=== PATIENT | female | born 1980 | race Caucasian/White ===

== ENCOUNTER 2017-01-22 14:25 | Emergency (ER) | payer MEDICARE ==
[~2017-01-22] VITALS: Ht 167.6 cm; Wt 90.0 kg
[2017-01-22 14:35] VITALS: BP 134/88; PULSE 70; RESP 15; TEMP 99; O2SAT 96
[2017-01-22] MEDS ORDERED: CYMB60CA PO (14:45)
[2017-01-22] MEDS ORDERED: BUTA1CAP PO ×2 (14:45→15:21)
[2017-01-22] MEDS ORDERED: NEUR400C PO (14:45)
[2017-01-22] MEDS ORDERED: NEUR800T PO (14:45)
[2017-01-22] MEDS ORDERED: ACETAMIN 325 MG/BUTALBITAL 50 MG/CAFFEINE 40 MG TAB PO ONE (15:15)
[2017-01-22] MEDS ORDERED: ONDANSETRON ODT 4 MG TAB PO ONE (15:15)
[2017-01-22] MEDS ORDERED: ZOFR4TAB3 SL (15:22)
--- NOTE | 2017-01-22 15:22 | PD ---
HPI Chief Complaint: Cold / Flu Symptoms Time Seen by Provider: 15:15 Travel History International Travel<30 days: No Contact w/Intl Traveler<30days: No Traveled to known affect area: No History of Present Illness HPI 36-year-old female with history of migraine headaches, presents to the ER today for several days history of headaches which she states is a 5 out of 10 and feels like her migraines, worse with loud noises and flickering lights, nausea, vomiting, and she also states she has had a few days of cough and sinus pressure. She states that she had tried to take ibuprofen tppk-pyw-pebhlsz and BC powder without significant relief. She states she had taken Sudafed which helped with the nasal symptoms but did not relieve her headaches. She believes that this is her migraine headache. However, she ran out of her usual Fioricet. She states that she gets migraines intermittently every few months. Modifying Factors: None Associated Signs & Symptoms: Headache, nausea, vomiting, sinus pressure, cough Risk Factors: Migraine headaches PFSH Past Medical History Depression: Yes Headaches: Yes Migraines: Yes Influenza Vaccination: No ?: Not LMP: 2 WEEKS Social History Alcohol Use: Yes (rarely) Tobacco Use: Yes (1/2 ppd) Substance Use: No Allergies-Medications (Allergen,Severity, Reaction): Coded Allergies: Tramadol (Verified Allergy, Intermediate, Tachycardia, 01/22/17) Reported Meds & Prescriptions Reported Meds & Active Scripts Active Reported Neurontin (Gabapentin) 800 Mg Tab 800 Mg PO HS Neurontin (Gabapentin) 400 Mg Cap 400 Mg PO DAILY Cymbalta DR (Duloxetine HCl) 60 Mg Capdr 60 Mg PO DAILY Fioricet (Njempgtjcv-Dcgmptkuegthf-Paufvdyx) 50-300-40 Mg Cap 1-2 Cap PO Q6H PRN Review of Systems Except as stated in HPI: all other systems reviewed are Neg Physical Exam Narrative GENERAL: Young white female patient who is well-developed, awake, alert, oriented 3. Not in acute distress. SKIN: Warm and dry. HEAD: Atraumatic. Normocephalic. EYES: Pupils equal and round. No scleral icterus. No injection or drainage. No photophobia. ENT: No nasal bleeding or discharge. Mucous membranes pink and moist. NECK: Trachea midline. No JVD. CARDIOVASCULAR: Regular rate and rhythm. No murmur appreciated. RESPIRATORY: No accessory muscle use. Clear to auscultation. Breath sounds equal bilaterally. GASTROINTESTINAL: Abdomen soft, non-tender, nondistended. Hepatic and splenic margins not palpable. MUSCULOSKELETAL: No obvious deformities. No clubbing. No cyanosis. No edema. NEUROLOGICAL: Awake and alert. No obvious cranial nerve deficits. Motor grossly within normal limits. Normal speech. PSYCHIATRIC: Appropriate mood and affect; insight and judgment normal. Data Data Last Documented VS Vital Signs Date Time Temp Pulse Resp B/P Pulse Ox O2 Delivery O2 Flow Rate FiO2 01/22/17 14:35 99.0 70 15 134/88 96 MDM Medical Decision Making Medical Screen Exam Complete: Yes Emergency Medical Condition: Yes Medical Record Reviewed: Yes Differential Diagnosis Migraine headache versus viral syndrome versus meningitis Narrative Course Patient has no meningeal signs and I am not suspecting a meningitis in this case. She has history of migraine headaches and states that headaches are feeling similar to her migraines. At this point, my plan would be to give her symptomatic treatment and refill her Fioricet. Follow-up with primary care physician. Return for any worsening in symptoms as necessary. The plan has been discussed with her and she states understanding. Diagnosis Primary Impression: Migraine headache Med/Other Pt SpecificInfo: Prescription(s) given Scripts Ondansetron Odt (Zofran Odt)4 Mg Tab4 Mg SL Q6HR PRN (Nausea/Vomiting) #5 TAB Ref 0 Prov:Lisa Harding MD 01/22/17 Mqmkujhnaf-Qjmuzyyrtodwu-Afgunfbl (Fioricet)50-300-40 Mg Cap1 Cap PO Q4H PRN ( HEADACHE) #12 CAP Ref 0 Prov:Lisa Harding MD 01/22/17 Disposition: 01 DISCHARGE HOME Condition: Stable Lisa Harding MD Jan 22, 2017 15:22
== END 2017-01-22 15:54 | disposition home or self-care (01) ==
LOC: PHEFT 14:25
DX: G43.909 Migraine, unspecified, not intractable, without status migrainosus (principal); F17.210 Nicotine dependence, cigarettes, uncomplicated
CPT/HCPCS: 99283

== ENCOUNTER 2017-07-31 10:34 | Emergency (ER) | payer MEDICARE, OTHER ==
[~2017-07-31] VITALS: Ht 170.2 cm; Wt 87.0 kg
[~2017-07-31 10:34] MED LIST: BUTA1CAP PO; CYMB60CA PO; NEUR400C PO; NEUR800T PO; ZOFR4TAB3 SL
[2017-07-31 10:40] VITALS: BP 140/80; PULSE 61; RESP 15; TEMP 98.7; O2SAT 100
[2017-07-31] MEDS ORDERED: METO50TA PO (10:53)
--- NOTE | 2017-07-31 11:08 | PD ---
HPI Chief Complaint: Fever Time Seen by Provider: 10:59 Travel History International Travel<30 days: No Contact w/Intl Traveler<30days: No Traveled to known affect area: No History of Present Illness HPI This 37-year-old female says she hasn't felt well for several days. She says she's been feeling weak and feels like he has to sleep a lot. She's been having intermittent fever. She does have toothache and has very bad teeth that she's been told to be extracted. She's been taking Motrin 800 mg every 6 hours. She has not had any dysuria. She has a history of lupus for 10 years. She is on no medications. Lupus is primarily affected her with joint pain area. There is been no sore throat or cough. PFSH Past Medical History Anxiety: Yes Depression: Yes Fibromyalgia: Yes Headaches: Yes Medical other: Yes (LUPUS) Migraines: Yes ?: Not Past Surgical History Appendectomy: Yes Section: Yes Cholecystectomy: Yes Tonsillectomy: Yes Other Surgery: Yes (BREAST AUGMENTATION) Social History Alcohol Use: Yes (rarely) Tobacco Use: Yes (1/2 ppd) Substance Use: No Allergies-Medications (Allergen,Severity, Reaction): Coded Allergies: tramadol (Unverified Allergy, Intermediate, Tachycardia, 07/31/17) Reported Meds & Prescriptions Reported Meds & Active Scripts Active Reported Metoprolol Tartrate 50 Mg Tab 50 Mg PO DAILY Neurontin (Gabapentin) 800 Mg Tab 800 Mg PO HS Cymbalta DR (Duloxetine HCl) 60 Mg Capdr 60 Mg PO DAILY Review of Systems General / Constitutional: Positive: Fever Eyes: No: Diploplia, Blurred Vision HENT: Positive: Dental Difficulties, No: Headaches Cardiovascular: No: Chest Pain or Discomfort, Palpitations Respiratory: No: Cough, Shortness of Breath Gastrointestinal: No: Nausea, Vomiting Genitourinary: No: Urgency, Frequency Skin: No Rash Neurologic: Positive: Weakness, Dizziness Hematologic/Lymphatic: Positive: Easy Bruising Physical Exam Narrative GENERAL: Well-developed female SKIN: Focused skin assessment warm/dry. HEAD: Atraumatic. Normocephalic. EYES: Pupils equal and round. No scleral icterus. No injection or drainage. ENT: No nasal bleeding or discharge. Mucous membranes pink and moist. There are multiple severely eroded teeth with underlying gum tenderness NECK: Trachea midline. No JVD. CARDIOVASCULAR: Regular rate and rhythm. No murmur appreciated. RESPIRATORY: No accessory muscle use. Clear to auscultation. Breath sounds equal bilaterally. GASTROINTESTINAL: Abdomen soft, non-tender, nondistended. Hepatic and splenic margins not palpable. MUSCULOSKELETAL: No obvious deformities. No clubbing. No cyanosis. No edema. There is a bruise on the inside of the left thigh. No other bruising is noted NEUROLOGICAL: Awake and alert. No obvious cranial nerve deficits. Motor grossly within normal limits. Normal speech. PSYCHIATRIC: Appropriate mood and affect; insight and judgment normal. Data Data Last Documented VS Vital Signs Date Time Temp Pulse Resp B/P (MAP) Pulse Ox O2 Delivery O2 Flow Rate FiO2 07/31/17 10:40 98.7 61 15 140/80 (100) 100 Orders Orders Complete Blood Count With Diff (07/31/17 11:05) Comprehensive Metabolic Panel (07/31/17 11:05) Prothrombin Time / Inr (Pt) (07/31/17 11:05) Act Partial Throm Time (Ptt) (07/31/17 11:05) Urinalysis - C+S If Indicated (07/31/17 11:05) Influenzae A/B Antigen (07/31/17 11:08) Ed Urine Pregnancytest Poc (07/31/17 11:24) Labs Laboratory Tests Test 07/31/17 11:15 07/31/17 11:25 White Blood Count 8.5 TH/MM3 Red Blood Count 3.93 MIL/MM3 Hemoglobin 13.2 GM/DL Hematocrit 38.1 % Mean Corpuscular Volume 97.0 FL Mean Corpuscular Hemoglobin 33.7 PG Mean Corpuscular Hemoglobin Concent 34.8 % Red Cell Distribution Width 13.6 % Platelet Count 413 TH/MM3 Mean Platelet Volume 7.5 FL Neutrophils (%) (Auto) 73.4 % Lymphocytes (%) (Auto) 20.3 % Monocytes (%) (Auto) 3.9 % Eosinophils (%) (Auto) 1.9 % Basophils (%) (Auto) 0.5 % Neutrophils # (Auto) 6.3 TH/MM3 Lymphocytes # (Auto) 1.7 TH/MM3 Monocytes # (Auto) 0.3 TH/MM3 Eosinophils # (Auto) 0.2 TH/MM3 Basophils # (Auto) 0.0 TH/MM3 CBC Comment DIFF FINAL Differential Comment Prothrombin Time 10.3 SEC Prothromb Time International Ratio 0.9 RATIO Activated Partial Thromboplast Time 26.1 SEC Blood Urea Nitrogen 9 MG/DL Creatinine 0.95 MG/DL Random Glucose 98 MG/DL Total Protein 7.2 GM/DL Albumin 3.8 GM/DL Calcium Level 9.4 MG/DL Alkaline Phosphatase 56 U/L Aspartate Amino Transf (AST/SGOT) 13 U/L Alanine Aminotransferase (ALT/SGPT) 16 U/L Total Bilirubin 0.3 MG/DL Sodium Level 139 MEQ/L Potassium Level 4.0 MEQ/L Chloride Level 106 MEQ/L Carbon Dioxide Level 25.5 MEQ/L Anion Gap 8 MEQ/L Estimat Glomerular Filtration Rate 67 ML/MIN Urine Color YELLOW Urine Turbidity CLEAR Urine pH 6.0 Urine Specific [place] 1.021 Urine Protein NEG mg/dL Urine Glucose (UA) NEG mg/dL Urine Ketones NEG mg/dL Urine Occult Blood NEG Urine Nitrite NEG Urine Bilirubin NEG Urine Leukocyte Esterase NEG Urine WBC 0-2 /hpf Urine Squamous Epithelial Cells 0-5 /hpf Microscopic Urinalysis Comment CULT NOT INDICATED MDM Medical Decision Making Medical Screen Exam Complete: Yes Emergency Medical Condition: Yes Medical Record Reviewed: Yes Differential Diagnosis Patient is having generalized weakness and fever. Differential includes lupus flare, UTI, influenza Narrative Course Test for influenza is negative. Urine is negative. Blood work unremarkable. She'll be treated for dental infection Diagnosis Primary Impression: Dental infection Scripts Penicillin V Potassium (Penicillin V Potassium) 500 Mg Tab 500 MG PO Q6H for Infection for 10 Days, #40 TAB 0 Refills Prov: Arnulfo Valencia MD 07/31/17 Disposition: 01 DISCHARGE HOME Condition: Stable Arnulfo Valencia MD Jul 31, 2017 11:07
[2017-07-31 11:22] LABS: AUTOMATED NEUTROPHIL # 6.3 TH/MM3 (1.8-7.7); BASOPHIL % 0.5 % (0.0-2.0); EOSINOPHIL # 0.2 TH/MM3 (0-0.4); EOSINOPHIL % 1.9 % (0.0-4.0); HEMATOCRIT 38.1 % (35.0-46.0); HEMO FLAGS DIFF FINAL; LYMPH % 20.3 % (9.0-44.0); LYMPHOCYTE # 1.7 TH/MM3 (1.0-4.8); MEAN CORPUSCULAR HEMOGLOBIN 33.7 PG (27.0-34.0); MEAN CORPUSCULAR HGB CONC 34.8 % (32.0-36.0); MONO % 3.9 % (0.0-8.0); NEUT % 73.4 % (16.0-70.0); PLATELET COUNT 413 TH/MM3 (150-450); RED BLOOD COUNT 3.93 MIL/MM3 (4.00-5.30); RED CELL DISTRIBUTION WIDTH 13.6 % (11.6-17.2); WHITE BLOOD COUNT 8.5 TH/MM3 (4.0-11.0)
[2017-07-31 11:28] LABS: BLOOD, URINE NEG (NEG); GLUCOSE,URINE NEG (NEG); KETONE, URINE NEG (NEG); NITRITE,URINE NEG (NEG)
[2017-07-31 11:31] LABS: CHLORIDE 106 MEQ/L (98-107); SODIUM (NA) 139 MEQ/L (136-145)
[2017-07-31 11:34] LABS: ANION GAP 8 MEQ/L (5-15); BICARBONATE 25.5 MEQ/L (21.0-32.0)
[2017-07-31 11:35] LABS: APTT (PATIENT) 26.1 SEC (24.3-30.1); BLOOD UREA NITROGEN 9 MG/DL (7-18); INTERNATIONAL NORMALIZED RATIO 0.9 RATIO; PROTHROMBIN TIME - PATIENT 10.3 SEC (9.8-11.6)
[2017-07-31 11:36] LABS: COMMENT (UR) CULT NOT INDICATED; CULTURE IF INDICATED CULT NOT INDICATED; SQUAMOUS EPITHELIAL CELL URINE 0-5 /hpf (0-5); URINE COLOR YELLOW (YELLW/STRAW); WBC, URINE 0-2 /hpf (0-5)
[2017-07-31 11:37] LABS: ALT (GPT) 16 U/L (10-53)
[2017-07-31 11:38] LABS: AST (GOT) 13 U/L (15-37); GLOMERULAR FILTRATION RATE 67 ML/MIN (>89)
[2017-07-31 11:39] LABS: TOTAL BILIRUBIN ADULT 0.3 MG/DL (0.2-1.0)
[2017-07-31 11:40] LABS: ALKALINE PHOSPHATASE 56 U/L (45-117)
[2017-07-31 12:15] VITALS: BP 137/83; PULSE 90; RESP 20; O2SAT 100
[2017-07-31] MEDS ORDERED: PENI500T PO (12:15)
[2017-08-17] MEDS ORDERED: METO25TA3 PO (11:58)
[2017-08-24] MEDS ORDERED: PRED5PAK2 PO (08:46)
== END 2017-07-31 12:27 | disposition home or self-care (01) ==
LOC: PHED 10:34
DX: K04.7 Periapical abscess without sinus (principal); M32.9 Systemic lupus erythematosus, unspecified; M79.7 Fibromyalgia; F17.210 Nicotine dependence, cigarettes, uncomplicated; R53.1 Weakness; Z79.899 Other long term (current) drug therapy; R23.3 Spontaneous ecchymoses
CPT/HCPCS: 80053; 81001; 84703; 85025; 85610; 85730; 87804; 99283

== ENCOUNTER 2017-08-17 11:42 | Emergency (ER) | payer MEDICARE, OTHER ==
[~2017-08-17] VITALS: Ht 167.6 cm; Wt 80.0 kg
[~2017-08-17 11:42] MED LIST changes: -BUTA1CAP PO; +METO50TA PO; -NEUR400C PO; +PENI500T PO; -ZOFR4TAB3 SL
[2017-08-17 11:44] VITALS: BP 122/66; PULSE 70; RESP 15; TEMP 98.4; O2SAT 98
[2017-08-17] MEDS ORDERED: METO25TA3 PO ×2 (11:58)
[2017-08-17] MEDS ORDERED: ACETAMINOPHEN/HYDROcodone 325 MG/5 MG TAB PO ONE (12:15)
--- NOTE | 2017-08-17 13:16 | RADRPT ---
EXAM DATE/TIME: 08/17/2017 12:36 [facility] COMPARISON: No previous studies available for comparison. INDICATIONS : Difficulty breathing, pain with deep breaths. Fell MEDICAL HISTORY : Hypertension. Fibromyalgia. SURGICAL HISTORY : Appendectomy. Cholecystectomy. section. ENCOUNTER: Initial ACUITY: 3 days PAIN SCORE: 0/10 LOCATION: Bilateral chest FINDINGS: A single view of the chest demonstrates the lungs to be symmetrically aerated without evidence of mas s, infiltrate or effusion. No evidence of pneumothorax. The cardiomediastinal contours are unremarka ble. Osseous structures are intact. CONCLUSION: The lungs are clear. Mio Rodriguez MD on August 17, 2017 at 13:14 Board Certified Radiologist. This report was verified electronically.
--- NOTE | 2017-08-17 13:17 | RADRPT ---
EXAM DATE/TIME: 08/17/2017 12:38 [facility] COMPARISON: No previous studies available for comparison. INDICATIONS : Upper back pain, fell MEDICAL HISTORY : Hypertension. Fibromyalgia. SURGICAL HISTORY : Appendectomy. Cholecystectomy. section. ENCOUNTER: Initial ACUITY: 3 days PAIN SCORE: 10/10 LOCATION: Thoracic spine. FINDINGS: There is normal alignment and preservation of height of the vertebral bodies of the thoracic spine. V lexis minimal curvature convex towards the left. Pedicles are seen at all levels. No destructive lesion s seen. Hemoclips in the right upper quadrant from presumed cholecystectomy. CONCLUSION: No evidence of compression deformity or spondylolisthesis. Mio Rodriguez MD on August 17, 2017 at 13:15 Board Certified Radiologist. This report was verified electronically.
[2017-08-17] MEDS ORDERED: HYDR-3533 PO (13:36)
--- NOTE | 2017-08-17 13:37 | PD ---
HPI Chief Complaint: Fall Time Seen by Provider: 12:03 Travel History International Travel<30 days: No Contact w/Intl Traveler<30days: No Traveled to known affect area: No History of Present Illness HPI This is a 37-year-old female who presents to the emergency department having had a fall yesterday where she she was trying to lift something off of a high shelf and she fell on her side landing on a water jug. She injured her left back and she has constant severe pain in the left back, worse with deep breaths making it difficult for her to take a deep breath. Pain is described as an aching pain. She did not hit her head and denies any other injuries. PFSH Past Medical History Anxiety: Yes Depression: Yes Fibromyalgia: Yes Headaches: Yes Hypertension: Yes Medical other: Yes (LUPUS) Migraines: Yes ?: Not LMP: NOW Past Surgical History Appendectomy: Yes Section: Yes Cholecystectomy: Yes Tonsillectomy: Yes Other Surgery: Yes (BREAST AUGMENTATION) Social History Alcohol Use: Yes (rarely) Tobacco Use: Yes (1/2 ppd) Substance Use: No Allergies-Medications (Allergen,Severity, Reaction): Coded Allergies: tramadol (Unverified Allergy, Intermediate, Tachycardia, 07/31/17) Reported Meds & Prescriptions Reported Meds & Active Scripts Active Reported Metoprolol Tartrate 25 Mg Tab 25 Mg PO DAILY Neurontin (Gabapentin) 800 Mg Tab 800 Mg PO HS Cymbalta DR (Duloxetine HCl) 60 Mg Capdr 60 Mg PO DAILY Review of Systems Except as stated in HPI: all other systems reviewed are Neg Physical Exam Narrative GENERAL:Well appearing, no acute distress SKIN: Ecchymoses to the left posterior rib cage, tender to palpation along the left posterior rib cage at the mid thoracic spine HEAD: Atraumatic. Normocephalic. EYES: Pupils equal and round. No injection or drainage. ENT: Moist mucous membranes NECK: Trachea midline. No cervical spine tenderness. CARDIOVASCULAR: Regular rate and rhythm. No murmur appreciated. RESPIRATORY: Clear to auscultation. Breath sounds equal bilaterally. GASTROINTESTINAL: Abdomen soft, non-tender, nondistended. MUSCULOSKELETAL: No obvious deformities. NEUROLOGICAL: Awake and alert. No obvious cranial nerve deficits. Moving all extremities. PSYCHIATRIC: Appropriate mood and affect; insight and judgment normal. Data Data Last Documented VS Vital Signs Date Time Temp Pulse Resp B/P (MAP) Pulse Ox O2 Delivery O2 Flow Rate FiO2 08/17/17 11:44 98.4 70 15 122/66 (84) 98 Orders Orders Chest, Single Ap (08/17/17 ) Spine, Thoracic-Ap/Lat/Sw(3vw) (08/17/17 ) Acetamin-Hydrocod 325-5 Mg ([place] 5-325 (08/17/17 12:15) MDM Medical Decision Making Medical Screen Exam Complete: Yes Emergency Medical Condition: Yes Interpretation(s) Last 24 hours Impressions Thoracic Spine X-Ray 08/17/17 0000 Signed Impressions: Service Date/Time: August 12:38 - CONCLUSION: No evidence of compression deformity or spondylolisthesis. Mio Rodriguez MD Chest X-Ray 08/17/17 0000 Signed Impressions: Service Date/Time: August 12:36 - CONCLUSION: The lungs are clear. Mio Rodriguez MD Differential Diagnosis Pneumothorax, rib fracture, rib contusion Narrative Course This is a 37-year-old female who presents to the emergency department with pain in her left rib cage following a fall. The pain is pleuritic and is consistent with a possible rib fracture. Chest x-rays reassuring and thoracic spine x- rays reassuring. Patient will be discharged with a short course of pain medication. Diagnosis Primary Impression: Rib contusion Qualified Codes: S20.212A - Contusion of left front wall of thorax, initial encounter Patient Instructions: General Instructions Additional Instructions: If you develop severe chest pain, shortness of breath, sweating, lightheadedness , dizziness or difficulty breathing return to the emergency department immediately. Followup with your primary care physician in 2-3 days if your symptoms are not resolved. Med/Other Pt SpecificInfo: Prescription(s) given Scripts Hydrocodone-Acetaminophen (Lortab) 5-325 Mg Tab 1-2 TAB PO Q6H Y for PAIN, #15 TAB 0 Refills Prov: Shahnaz Kumar MD 08/17/17 Disposition: 01 DISCHARGE HOME Condition: Stable Shahnaz Kumar MD Aug 17, 2017 13:36
[2017-08-24] MEDS ORDERED: PRED5PAK2 PO (08:46)
== END 2017-08-17 13:59 | disposition home or self-care (01) ==
LOC: NEPD 11:42
DX: S20.212A Contusion of left front wall of thorax, initial encounter (principal); W19.XXXA Unspecified fall, initial encounter; Y93.89 Activity, other specified
CPT/HCPCS: 71010; 72072; 94150; 99284

== ENCOUNTER 2017-08-19 14:39 | Inpatient (IN) | payer MEDICARE, OTHER ==
[~2017-08-19] VITALS: Ht 170.2 cm; Wt 89.0 kg
[2017-08-19] VITALS (10 sets, daily range): BP systolic 93–116; BP diastolic 34–65; PULSE 68–96; RESP 18–37; TEMP 99.2–99.9; O2SAT 78–99
[~2017-08-19 14:39] MED LIST changes: +HYDR-3533 PO; +METO25TA3 PO
[2017-08-19] MEDS ORDERED: MORPHINE SULFATE 4 MG/ML INJ IV PUSH ONE ×2 (15:15→16:45)
[2017-08-19] MEDS ORDERED: ONDANSETRON HCL 4 MG/2 ML VIAL IV PUSH ONE (15:15)
[2017-08-19 15:21] LABS: AUTOMATED NEUTROPHIL # 17.6 TH/MM3 (1.8-7.7); BASOPHIL # 0.1 TH/MM3 (0-0.2); BASOPHIL % 0.3 % (0.0-2.0); EOSINOPHIL # 0.2 TH/MM3 (0-0.4); EOSINOPHIL % 0.8 % (0.0-4.0); HEMATOCRIT 33.6 % (35.0-46.0); HEMO FLAGS DIFF FINAL; LYMPH % 5.5 % (9.0-44.0); LYMPHOCYTE # 1.1 TH/MM3 (1.0-4.8); MEAN CELL VOLUME 97.8 FL (80.0-100.0); MEAN CORPUSCULAR HEMOGLOBIN 31.9 PG (27.0-34.0); MEAN CORPUSCULAR HGB CONC 32.6 % (32.0-36.0); MONO % 1.3 % (0.0-8.0); NEUT % 92.1 % (16.0-70.0); PLATELET COUNT 350 TH/MM3 (150-450); RED BLOOD COUNT 3.43 MIL/MM3 (4.00-5.30); RED CELL DISTRIBUTION WIDTH 13.1 % (11.6-17.2); WHITE BLOOD COUNT 19.3 TH/MM3 (4.0-11.0)
[2017-08-19 15:30] LABS: CHLORIDE 109 MEQ/L (98-107); POTASSIUM 3.7 MEQ/L (3.5-5.1); SODIUM (NA) 140 MEQ/L (136-145)
--- NOTE | 2017-08-19 15:30 | RADRPT ---
EXAM DATE/TIME: 08/19/2017 15:17 [facility] COMPARISON: CHEST SINGLE AP, August 17, 2017, 12:36. INDICATIONS : Short of breath, chest pains MEDICAL HISTORY : Lupus. SURGICAL HISTORY : None. ENCOUNTER: Initial ACUITY: 4 - 6 days PAIN SCORE: 10/10 LOCATION: Right chest FINDINGS: Hazy bilateral primarily central alveolar opacities are present, potentially reflecting edema or deve loping diffuse infiltrate. No significant effusion. Cardiac contours are grossly satisfactory. CONCLUSION: Symmetric bilateral perihilar alveolar opacities Tremaine Ordonez MD on August 19, 2017 at 15:28 Board Certified Radiologist. This report was verified electronically.
[2017-08-19 15:33] LABS: ANION GAP 8 MEQ/L (5-15); BICARBONATE 22.7 MEQ/L (21.0-32.0); BLOOD UREA NITROGEN 10 MG/DL (7-18)
[2017-08-19 15:36] LABS: ALT (GPT) 41 U/L (10-53)
[2017-08-19 15:37] LABS: AST (GOT) 48 U/L (15-37); GLOMERULAR FILTRATION RATE 70 ML/MIN (>89)
[2017-08-19 15:38] LABS: TOTAL BILIRUBIN ADULT 0.7 MG/DL (0.2-1.0)
[2017-08-19 15:39] LABS: ALKALINE PHOSPHATASE 92 U/L (45-117)
[2017-08-19] MEDS ORDERED: AZITHROMYCIN INJ 500 MG in SODIUM CHLOR 0.9% 250 ML INJ 250 ML IV ONE (15:45)
[2017-08-19] MEDS ORDERED: cefTRIAXone INJ 1,000 MG in SODIUM CHLORIDE 0.9% INJ 100 ML IV ONE (15:45)
--- NOTE | 2017-08-19 16:21 | RADRPT ---
EXAM DATE/TIME: 08/19/2017 15:23 [facility] COMPARISON: CHEST SINGLE AP, August 19, 2017, 15:17. INDICATIONS : Fall, left rib pain. RADIATION DOSE: 10.90 CTDIvol (mGy) MEDICAL HISTORY : Hypertension. Fibromyalgia, anxiety. SURGICAL HISTORY : Appendectomy. Cholecystectomy. Breast augmentation ENCOUNTER: Initial ACUITY: 3 days PAIN SCALE: 10/10 LOCATION: Left chest TECHNIQUE: Volumetric scanning of the chest was performed. Using automated exposure control and adjustment of t he mA and/or kV according to patient size, radiation dose was kept as low as reasonably achievable to obtain optimal diagnostic quality images. DICOM format image data is available electronically for r eview and comparison. Follow-up recommendations for detected pulmonary nodules are based at a minimum on nodule size and pa tient risk factors according to Fleischner Society Guidelines. FINDINGS: There is diffuse groundglass and patchy consolidative airspace disease bilaterally with sparing of th e costophrenic angles. There are no effusions. A right paratracheal lymph node is present measuring 1 cm in short axis diameter. Subcentimeter prevascular nodes are identified and subcentimeter subcarin al lymph node. No pleural or pericardial effusions. Bilateral breast implants are noted. No obvious f ractures. CONCLUSION: 1. Bilateral groundglass infiltrates are noted. Infectious or inflammatory pneumonitis/hypersensitivi ty pneumonitis can have this appearance. Pato Hardy MD on August 19, 2017 at 16:17 Board Certified Radiologist. This report was verified electronically.
--- NOTE | 2017-08-19 16:43 | PD ---
HPI Chief Complaint: Respiratory Symptoms Time Seen by Provider: 14:54 Travel History International Travel<30 days: No Contact w/Intl Traveler<30days: No Traveled to known affect area: No History of Present Illness HPI Patient is a 37 year old female who comes in complaining of pain and SOB. She was here a few days ago after a fall and was diagnosed with a rib contusion. She was prescribed pain medicine, which she ran out of a few days ago. She says that for two days she has had a lot of pain in her rib and she is unable to take deep breaths. She denies any new injury. She denies fever or chills. PFSH Past Medical History Anxiety: Yes Depression: Yes Fibromyalgia: Yes Headaches: Yes Hypertension: Yes Migraines: Yes ?: Not Past Surgical History Appendectomy: Yes Section: Yes Cholecystectomy: Yes Tonsillectomy: Yes Other Surgery: Yes (BREAST AUGMENTATION) Social History Alcohol Use: Yes (rarely) Tobacco Use: Yes (1/2 ppd) Substance Use: No Allergies-Medications (Allergen,Severity, Reaction): Coded Allergies: tramadol (Unverified Allergy, Intermediate, Tachycardia, 08/19/17) Reported Meds & Prescriptions Reported Meds & Active Scripts Active Lortab (Hydrocodone-Acetaminophen) 5-325 Mg Tab 1-2 Tab PO Q6H PRN Reported Metoprolol Tartrate 25 Mg Tab 25 Mg PO DAILY Neurontin (Gabapentin) 800 Mg Tab 800 Mg PO HS Cymbalta DR (Duloxetine HCl) 60 Mg Capdr 60 Mg PO DAILY Review of Systems Except as stated in HPI: all other systems reviewed are Neg General / Constitutional: No: Fever, Chills HENT: No: Headaches, Lightheadedness Cardiovascular: Positive: Chest Pain or Discomfort Respiratory: Positive: Shortness of Breath Gastrointestinal: No: Nausea, Vomiting Musculoskeletal: Positive: Pain, No: Myalgias Skin: No Rash, No Change in Pigmentation Neurologic: No: Weakness, Dizziness Physical Exam Narrative GENERAL: Awake and alert, in moderate distress. SKIN: Focused skin assessment warm/dry. HEAD: Atraumatic. Normocephalic. EYES: Pupils equal and round. No scleral icterus. ENT: Mucous membranes pink and moist. NECK: Trachea midline. No JVD. CARDIOVASCULAR: Regular rate and rhythm. No murmur appreciated. RESPIRATORY: Tachypnea. Decreased breath sounds at the bases. Breath sounds equal bilaterally. GASTROINTESTINAL: Abdomen soft, non-tender, nondistended. MUSCULOSKELETAL: No obvious deformities. No clubbing. No cyanosis. No edema. NEUROLOGICAL: Awake and alert. No obvious cranial nerve deficits. Motor grossly within normal limits. Normal speech. PSYCHIATRIC: Appropriate mood and affect; insight and judgment normal. Data Data Last Documented VS Vital Signs Date Time Temp Pulse Resp B/P (MAP) Pulse Ox O2 Delivery O2 Flow Rate FiO2 08/19/17 16:05 87 20 112/57 (75) 98 Non-Rebreather 08/19/17 14:44 99.9 Orders Orders Iv Access Insert/Monitor (08/19/17 15:05) Complete Blood Count With Diff (08/19/17 15:05) Comprehensive Metabolic Panel (08/19/17 15:05) Ct Thorax/ Chest Wo Iv Contras (08/19/17 ) Chest, Single Ap (08/19/17 ) Morphine Inj (Morphine Inj) (08/19/17 15:15) Ondansetron Inj (Zofran Inj) (08/19/17 15:15) Ceftriaxone Inj (Rocephin Inj) (08/19/17 15:45) Azithromycin Inj (Zithromax Inj) (08/19/17 15:45) Morphine Inj (Morphine Inj) (08/19/17 16:45) Arterial Blood Gas (Abg) (08/19/17 ) Admit Order (Ed Use Only) (08/19/17 ) Labs Laboratory Tests Test 08/19/17 15:15 White Blood Count 19.3 TH/MM3 Red Blood Count 3.43 MIL/MM3 Hemoglobin 10.9 GM/DL Hematocrit 33.6 % Mean Corpuscular Volume 97.8 FL Mean Corpuscular Hemoglobin 31.9 PG Mean Corpuscular Hemoglobin Concent 32.6 % Red Cell Distribution Width 13.1 % Platelet Count 350 TH/MM3 Mean Platelet Volume 7.8 FL Neutrophils (%) (Auto) 92.1 % Lymphocytes (%) (Auto) 5.5 % Monocytes (%) (Auto) 1.3 % Eosinophils (%) (Auto) 0.8 % Basophils (%) (Auto) 0.3 % Neutrophils # (Auto) 17.6 TH/MM3 Lymphocytes # (Auto) 1.1 TH/MM3 Monocytes # (Auto) 0.3 TH/MM3 Eosinophils # (Auto) 0.2 TH/MM3 Basophils # (Auto) 0.1 TH/MM3 CBC Comment DIFF FINAL Differential Comment Blood Urea Nitrogen 10 MG/DL Creatinine 0.91 MG/DL Random Glucose 121 MG/DL Total Protein 6.5 GM/DL Albumin 2.9 GM/DL Calcium Level 8.7 MG/DL Alkaline Phosphatase 92 U/L Aspartate Amino Transf (AST/SGOT) 48 U/L Alanine Aminotransferase (ALT/SGPT) 41 U/L Total Bilirubin 0.7 MG/DL Sodium Level 140 MEQ/L Potassium Level 3.7 MEQ/L Chloride Level 109 MEQ/L Carbon Dioxide Level 22.7 MEQ/L Anion Gap 8 MEQ/L Estimat Glomerular Filtration Rate 70 ML/MIN MDM Medical Decision Making Medical Screen Exam Complete: Yes Emergency Medical Condition: Yes Medical Record Reviewed: Yes Differential Diagnosis pneumonia vs pneumothorax vs rib fractures Narrative Course Patient is a 37-year-old female comes in complaining of pain and shortness of breath. She is hypoxic on room air the low 70s. This improves on a nonrebreather. IV established, labs sent. Patient given morphine for her pain. X-ray shows bilateral opacities. CT of her chest performed shows bilateral groundglass opacities. She has a white blood cell count of 19.3. Treated with Rocephin and azithromycin. She continues to complain of pain. Given an additional dose of morphine. Switched to a Ventimask. She will be admitted for further management. Diagnosis Primary Impression: Pneumonia Qualified Codes: J18.9 - Pneumonia, unspecified organism Additional Impression: Hypoxia Admitting Information Admitting Physician Requests: Admit Condition: Stable Mable Corona MD Aug 19, 2017 16:43
[2017-08-19 17:13] LABS: BLOOD GAS BASE EXCESS -0.8 mmol/L (-2-2); BLOOD GAS CARBOXYHEMOGLOBIN 2.8 % (0-4); BLOOD GAS HCO3 23 mmol/L (22-26); BLOOD GAS O2 HGB SATURATION 94 % (90-100); BLOOD GAS OXYGEN CONTENT 14.9 Vol % (12.0-20.0); BLOOD GAS PCO2 36 mmHG (38-42); BLOOD GAS PO2 92 mmHG (61-120); BLOOD GAS TOTAL HGB 11.2 G/DL (12.0-16.0); CRITICAL VALUE NO; FIO2 100 %; OXYGEN DEVICE NRB; TEMP CORR TO 98.6
[2017-08-19 17:14] LABS: DRAW SITE LT RADIAL; NUMBER OF ARTERIAL PUNCTURES 1; STAT YES; ULNAR PULSE Y
[2017-08-19] MEDS ORDERED: SENNOSIDES 8.6 MG TAB PO PRN (17:15)
[2017-08-19] MEDS ORDERED: NALOXONE HCL 0.4 MG/ML AMP IV PUSH PRN (17:15)
[2017-08-19] MEDS ORDERED: ACETAMINOPHEN 325 MG TAB PO PRN (17:15)
[2017-08-19] MEDS ORDERED: ONDANSETRON HCL 4 MG/2 ML VIAL IVP PRN (17:15)
[2017-08-19] MEDS ORDERED: SODIUM CHLORIDE 0.9% FLUSH 10 ML FLUSH IV FLUSH PRN (17:15)
--- NOTE | 2017-08-19 17:33 | HHI.HP ---
[facility] Primary [facility] Physician Non-Staff Admission Diagnosis Pneumonia, hypoxia Diagnoses: Chief Complaint: short of breath Travel History International Travel<30 Days: No Contact w/Intl Traveler <30 Da: No Traveled to Known Affected Are: No History of Present Illness This patient is a 37 year old female with a previous history of lupus who came to the emergency room complaining of increased shortness of breath for about 2-1 /2 days. She increased work of breathing and dyspnea on exertion. She finally came to the emergency room and symptoms not improved. She was hypoxemic in the high 70s on arrival requiring nonrebreather. Patient was noted to have low- grade temperature and leukocytosis. She had a CT of the chest done which was quite abnormal and showed quite a bit of ground glass and interstitial abnormalities. Patient denies chest pain but has multiple joint complaints due to 5 mL Sonya and lupus. She smokes half a pack a day. She denies recent travel. She does admit to cleaning her home with several weaning products including bleach. She has never had lung problems before. Recently she was in the emergency room for respiratory symptoms in July and she had a flu test which was negative. Patient also came to the emergency room earlier this week with complaints of a fall and having hit her chest on a drinking bottle. She was treated for probable contusions at that time and discharged home. The patient been admitted to the hospital with respiratory failure and leukocytosis. She's been started on antibiotics. Review of Systems Constitutional: DENIES: Diaphoretic episodes, Fatigue, Fever, Weight gain, Weight loss, Chills, Dizziness, Change in appetite, Night Sweats Endocrine: DENIES: Abnorml menstrual pattern, Heat/cold intolerance, Polydipsia , Polyuria, Polyphagia Eyes: DENIES: Blurred vision, Diplopia, Eye inflammation, Eye pain, Vision loss , Photosensitivity, Double Vision Ears, nose, mouth, throat: DENIES: Tinnitus, Hearing loss, Vertigo, Nasal discharge, Oral lesions, Throat pain, Hoarseness, Ear Pain, Running Nose, Epistaxis, Sinus Pain, Toothache, Odynophagia Respiratory: DENIES: Apneas, Cough, Snoring, Wheezing, Hemoptysis, Sputum production, Shortness of breath Cardiovascular: COMPLAINS OF: Chest pain, Dyspnea on Exertion, Lower Extremity Edema, DENIES: Palpitations, Syncope, PND, Orthopnea, Claudication Gastrointestinal: DENIES: Abdominal pain, Black stools, Bloody stools, Constipation, Diarrhea, Nausea, Vomiting, Difficulty Swallowing, Anorexia Genitourinary: DENIES: Abnormal vaginal bleeding, Dysmenorrhea, Dyspareunia, Sexual dysfunction, Urinary frequency, Urinary incontinence, Urgency, Hematuria , Dysuria, Nocturia, Vaginal discharge Musculoskeletal: COMPLAINS OF: Joint pain, DENIES: Muscle aches, Stiffness, Joint Swelling, Back pain, Neck pain Integumentary: DENIES: Abnormal pigmentation, Pruritus, Rash, Nail changes, Breast masses, Breast skin changes, Nipple discharge Hematologic/lymphatic: DENIES: Bruising, Lymphadenopathy Immunologic/allergic: DENIES: Eczema, Urticaria Neurologic: DENIES: Abnormal gait, Headache, Localized weakness, Paresthesias, Seizures, Speech Problems, Tremor, Poor Balance Psychiatric: COMPLAINS OF: Depression (w/o si intent) Except as stated in HPI: all other systems reviewed are Neg Past Family Social History Past Medical History SLE by bloodwork Fibromyalgia Depression Past Surgical History GB Appy c/s tonsils breast augmentation Reported Medications Reviewed in the EMR, recent hydrocodone Allergies: Coded Allergies: tramadol (Unverified Allergy, Intermediate, Tachycardia, 08/19/17) Active Ordered Medications reviewed in the emr Family History mom breast ca father mesothelioma Social History tobacco 1/2 ppd, occ etoh lives with BF disabled from SLE Physical Exam Vital Signs Vital Signs Date Time Temp Pulse Resp B/P (MAP) Pulse Ox O2 Delivery O2 Flow Rate FiO2 08/19/17 16:05 87 20 112/57 (75) 98 Non-Rebreather 08/19/17 14:44 99.9 96 18 116/60 (78) 78 Physical Exam GENERAL: This is a well-nourished, well-developed patient, in no apparent distress. SKIN: No rashes, ecchymoses or lesions. Cool and dry. HEAD: Atraumatic. Normocephalic. No temporal or scalp tenderness. EYES: Pupils equal round and reactive. Extraocular motions intact. No scleral icterus. No injection or drainage. ENT: Nose without bleeding, purulent drainage or septal hematoma. Throat without erythema, tonsillar hypertrophy or exudate. Uvula midline. Airway patent. NECK: Trachea midline. No JVD or lymphadenopathy. Supple, nontender, no meningeal signs. CARDIOVASCULAR: Regular rate and rhythm without murmurs, gallops, or rubs. RESPIRATORY: Clear to auscultation. Breath sounds equal bilaterally. No wheezes , rales, or rhonchi. GASTROINTESTINAL: Abdomen soft, non-tender, nondistended. No hepato-splenomegaly , or palpable masses. No guarding. MUSCULOSKELETAL: Extremities without clubbing, cyanosis, or edema. No joint tenderness, effusion, or edema noted. No calf tenderness. Negative Homans sign bilaterally. NEUROLOGICAL: Awake and alert. Cranial nerves II through XII intact. Motor and sensory grossly within normal limits. Five out of 5 muscle strength in all muscle groups. Normal speech. Laboratory Laboratory Tests Test 08/19/17 15:15 White Blood Count 19.3 Red Blood Count 3.43 Hemoglobin 10.9 Hematocrit 33.6 Mean Corpuscular Volume 97.8 Mean Corpuscular Hemoglobin 31.9 Mean Corpuscular Hemoglobin Concent 32.6 Red Cell Distribution Width 13.1 Platelet Count 350 Mean Platelet Volume 7.8 Neutrophils (%) (Auto) 92.1 Lymphocytes (%) (Auto) 5.5 Monocytes (%) (Auto) 1.3 Eosinophils (%) (Auto) 0.8 Basophils (%) (Auto) 0.3 Neutrophils # (Auto) 17.6 Lymphocytes # (Auto) 1.1 Monocytes # (Auto) 0.3 Eosinophils # (Auto) 0.2 Basophils # (Auto) 0.1 CBC Comment DIFF FINAL Differential Comment Blood Urea Nitrogen 10 Creatinine 0.91 Random Glucose 121 Total Protein 6.5 Albumin 2.9 Calcium Level 8.7 Alkaline Phosphatase 92 Aspartate Amino Transf (AST/SGOT) 48 Alanine Aminotransferase (ALT/SGPT) 41 Total Bilirubin 0.7 Sodium Level 140 Potassium Level 3.7 Chloride Level 109 Carbon Dioxide Level 22.7 Anion Gap 8 Estimat Glomerular Filtration Rate 70 Result Diagram: 08/19/17 1515 08/19/17 1515 Septic Shock Reassessment Heart: Regular rate and rhythm Lungs: Clear Skin: Warm Peripheral Pulses: Bounding Right Radial Bounding Left Radial Bounding Right Popliteal Bounding Left Popliteal Bounding Right Dorsalis Pedis Bounding Left Dorsalis Pedis Bounding Right Posterior Tibial Bounding Left Posterior Tibial Capillary Refill: Brisk Caprini VTE Risk Assessment Caprini VTE Risk Assessment: Mod/High Risk (score >= 2) Caprini Risk Assessment Model Point Value = 1 Point Value = 2 Point Value = 3 Point Value = 5 Age 41-60 Minor surgery BMI > 25 kg/m2 Swollen legs Varicose veins or History of unexplained or recurrent spontaneous Oral contraceptives or hormone replacement Sepsis (< 1 month) Serious lung disease, including pneumonia (< 1 month) Abnormal pulmonary function Acute myocardial infarction Congestive heart failure (< 1 month) History of inflammatory bowel disease Medical patient at bed rest Age 61-74 Arthroscopic surgery Major open surgery (> 45 min) Laparoscopic surgery (> 45 min) Malignancy Confined to bed (> 72 hours) Immobilizing plaster cast Central venous access Age >= 75 History of VTE Family history of VTE Factor V Leiden Prothrombin [id number] Lupus anticoagulant Anticardiolipin antibodies Elevated serum homocysteine Heparin-induced thrombocytopenia Other congenital or acquired thrombophilia Stroke (< 1 month) Elective arthroplasty Hip, pelvis, or leg fracture Acute spinal cord injury (< 1 month) Prophylaxis Regimen Total Risk Factor Score Risk Level Prophylaxis Regimen 0-1 Low Early ambulation 2 Moderate Order ONE of the following: *Sequential Compression Device (SCD) *Heparin 5000 units SQ BID 3-4 Higher Order ONE of the following medications: *Heparin 5000 units SQ TID *Enoxaparin/Lovenox 40 mg SQ daily (WT < 150 kg, CrCl > 30 mL/min) *Enoxaparin/Lovenox 30 mg SQ daily (WT < 150 kg, CrCl > 10-29 mL/min) *Enoxaparin/Lovenox 30 mg SQ BID (WT < 150 kg, CrCl > 30 mL/min) AND/OR *Sequential Compression Device (SCD) 5 or more Highest Order ONE of the following medications: *Heparin 5000 units SQ TID (Preferred with Epidurals) *Enoxaparin/Lovenox 40 mg SQ daily (WT < 150 kg, CrCl > 30 mL/min) *Enoxaparin/Lovenox 30 mg SQ daily (WT < 150 kg, CrCl > 10-29 mL/min) *Enoxaparin/Lovenox 30 mg SQ BID (WT < 150 kg, CrCl > 30 mL/min) AND *Sequential Compression Device (SCD) Assessment and Plan Problem List: (1) Acute hypoxemic respiratory failure ICD Code: J96.01 - Acute respiratory failure with hypoxia Plan: o2 support abg Treat empirically for pneumonia (CAP v Legionella), sputum, Leg antibodies, BCx2 (2) SLE (systemic lupus erythematosus) ICD Code: M32.9 - Systemic lupus erythematosus, unspecified Plan: Patient without immunosuppressant therapy, follow renal function and supportive care (3) Edema ICD Code: R60.9 - Edema, unspecified Plan: intermittent and patient attributes this to lupus 2 echo r/o cardiac dysfunction (4) Leukocytosis ICD Code: D72.829 - Elevated white blood cell count, unspecified Plan: Likely due to infectious process follow clinically (5) LFT elevation ICD Code: R79.89 - Other specified abnormal findings of blood chemistry Plan: sepsis, legionella, fatty liver (6) Anemia ICD Code: D64.9 - Anemia, unspecified Plan: etiology unclear, work up in progress ? lupus flare Code Status full code Discussed Condition With Patient, ER MD Physician Certification 2 Midnight Certification Type: Admission for Inpatient Services Order for Inpatient Services The services are ordered in accordance with Medicare regulations or non- Medicare payer requirements, as applicable. In the case of services not specified as inpatient-only, they are appropriately provided as inpatient services in accordance with the 2-midnight benchmark. Estimated LOS (days): 4 4 days is the estimated time the patient will need to remain in the hospital, assuming treatment plan goals are met and no additional complications. Post-Hospital Plan: Home Sara Hagen MD Aug 19, 2017 17:33
[2017-08-19] MEDS: ENOXAPARIN SODIUM 40 MG/0.4 ML SYRINGE SQ SCH (18:44)
[2017-08-19] MEDS: ACETAMINOPHEN/HYDROcodone 325 MG/5 MG TAB PO PRN (18:45)
[2017-08-19] MEDS: methylPREDNISolone SOD SUCC 40 MG/1 ML VIAL IV PUSH SCH (20:28)
[2017-08-19] MEDS: SODIUM CHLORIDE 0.9% FLUSH 10 ML FLUSH IV FLUSH SCH (20:28)
[2017-08-19] MEDS ORDERED: CHLORHEXIDINE GLUCONATE 2 % 1 PACK (2 CLOTHS)(extra cloths) TOPICAL PRN (20:30)
[2017-08-19] MEDS ORDERED: GABAPENTIN 400 MG CAP PO SCH (21:00)
[2017-08-19 23:44] LABS: TRANSFERRIN IRON PROFILE 197 MG/DL (200-360)
[2017-08-20] VITALS (26 sets, daily range): BP systolic 93–119; BP diastolic 34–72; PULSE 58–94; RESP 23–38; TEMP 97.6–99.9; O2SAT 75–100
[2017-08-20] MEDS: ACETAMINOPHEN/HYDROcodone 325 MG/5 MG TAB PO PRN ×4 (00:33→23:11)
[2017-08-20] MEDS: CHLORHEXIDINE GLUCONATE 2 % 1 PACK (2 CLOTHS)(taper/protocol) TOPICAL SCH (04:00)
[2017-08-20 06:33] LABS: AUTOMATED NEUTROPHIL # 16.2 TH/MM3 (1.8-7.7); BASOPHIL % 0.1 % (0.0-2.0); EOSINOPHIL # 0.1 TH/MM3 (0-0.4); EOSINOPHIL % 0.7 % (0.0-4.0); HEMATOCRIT 32.1 % (35.0-46.0); LYMPH % 3.1 % (9.0-44.0); LYMPHOCYTE # 0.5 TH/MM3 (1.0-4.8); MEAN CELL VOLUME 98.3 FL (80.0-100.0); MEAN CORPUSCULAR HEMOGLOBIN 32.3 PG (27.0-34.0); MEAN CORPUSCULAR HGB CONC 32.8 % (32.0-36.0); MONO % 1.1 % (0.0-8.0); PLATELET COUNT 328 TH/MM3 (150-450); RED BLOOD COUNT 3.27 MIL/MM3 (4.00-5.30); RED CELL DISTRIBUTION WIDTH 13.1 % (11.6-17.2)
[2017-08-20 06:40] LABS: POTASSIUM 4.1 MEQ/L (3.5-5.1)
[2017-08-20 06:42] LABS: HEMO FLAGS DIFF FINAL
[2017-08-20 06:43] LABS: BICARBONATE 25.9 MEQ/L (21.0-32.0)
[2017-08-20] MEDS: methylPREDNISolone SOD SUCC 40 MG/1 ML VIAL IV PUSH SCH ×2 (07:47→21:05)
[2017-08-20] MEDS: SODIUM CHLORIDE 0.9% FLUSH 10 ML FLUSH IV FLUSH SCH ×2 (07:51→21:05)
[2017-08-20] MEDS: METOPROLOL TARTRATE 25 MG TAB PO SCH ×2 (09:00→10:26)
--- NOTE | 2017-08-20 09:17 | HHI.PR ---
Subjective Remarks Patient seen today in follow-up for respiratory failure. Still hypoxemic and dropped into the 80s with minimal activity. Care plan discussed with NURSERY TEACHER. Patient is tachypneic and has began having pink colored frothy sputum. She is requiring nonrebreather. Patient plans a right sided discomfort greater than left. Objective Vitals Vital Signs Date Time Temp Pulse Resp B/P (MAP) Pulse Ox O2 Delivery O2 Flow Rate FiO2 08/20/17 07:56 90 Nasal Cannula 7.00 08/20/17 07:44 97 Non-Rebreather 15.00 08/20/17 07:00 97.6 71 23 119/55 (76) 93 08/20/17 06:00 78 28 105/65 (78) 99 08/20/17 05:00 65 08/20/17 05:00 65 08/20/17 05:00 65 37 106/65 (79) 98 08/20/17 04:00 97.9 70 31 104/51 (68) 91 08/20/17 03:00 70 08/20/17 03:00 70 38 104/51 (68) 92 08/20/17 02:00 70 29 97/47 (64) 94 08/20/17 01:33 16 08/20/17 01:00 72 30 97/47 (64) 91 08/20/17 01:00 72 08/20/17 00:40 Non-Rebreather 15.00 08/20/17 00:00 91 Non-Rebreather 08/20/17 00:00 99.9 76 34 93/34 (53) 99 08/19/17 23:52 72 36 93/34 (53) 93 08/19/17 23:00 75 08/19/17 22:17 78 37 112/65 (81) 90 08/19/17 20:41 99.2 76 33 95/49 (64) 96 08/19/17 20:30 95 Partial Rebreather 12.00 08/19/17 20:00 83 08/19/17 20:00 89 Partial Non-Rebreather 08/19/17 20:00 83 08/19/17 19:06 82 31 105/55 (72) 99 08/19/17 17:30 08/19/17 17:05 68 20 107/61 (76) 98 Venturi Mask 08/19/17 16:05 87 20 112/57 (75) 98 Non-Rebreather 08/19/17 14:44 99.9 96 18 116/60 (78) 78 I/O 08/19/17 08/19/17 08/19/17 08/20/17 08/20/17 08/20/17 07:00 15:00 23:00 07:00 15:00 23:00 Intake Total 360 ml Balance 360 ml Intake Oral 360 ml # Voids 1 Result Diagram: 08/20/1761308/20/17613 Objective Remarks GENERAL: This is a well-nourished, well-developed patient, short of breath and appears ill, coughing up pink frothy sputum CARDIOVASCULAR: Regular rate and rhythm without murmurs, gallops, or rubs. RESPIRATORY: Overall auscultation. Breath sounds equal bilaterally. No wheezes, rales, or rhonchi. GASTROINTESTINAL: Abdomen soft, non-tender, nondistended. Normal active bowel sounds MUSCULOSKELETAL: Extremities without clubbing, cyanosis, there is +1 edema NEURO: Alert & Oriented x4 to person, place, time, situation. Moves all ext x4 A/P Problem List: (1) Acute hypoxemic respiratory failure ICD Code: J96.01 - Acute respiratory failure with hypoxia Plan: o2 support abg unremarkable Treat empirically for pneumonia (CAP v Legionella), sputum, Leg antibodies, BCx2 (2) SLE (systemic lupus erythematosus) ICD Code: M32.9 - Systemic lupus erythematosus, unspecified Plan: Patient without immunosuppressant therapy, follow renal function and supportive care possible lupus flare? Added Solu-Medrol (3) Edema ICD Code: R60.9 - Edema, unspecified Plan: intermittent and patient attributes this to lupus 2 echo r/o cardiac dysfunction (4) Leukocytosis ICD Code: D72.829 - Elevated white blood cell count, unspecified Plan: Likely due to infectious process Somewhat improved continue to follow (5) LFT elevation ICD Code: R79.89 - Other specified abnormal findings of blood chemistry Plan: Etiology unclear, workup in progress may be from sepsis, legionella, fatty liver (6) Anemia ICD Code: D64.9 - Anemia, unspecified Plan: etiology unclear, work up in progress ? lupus flare Sara Hagen MD Aug 20, 2017 09:17
[2017-08-20] MEDS: DULoxetine HCl DR 60 MG CAP PO SCH (10:23)
--- NOTE | 2017-08-20 13:09 | ECHRPT ---
Indication: Shortness of breath CONCLUSIONS Normal left ventricular size and wall thickness. The left ventricular systolic function is normal wi th an estimated ejection fraction in the range of 60-65%. Left ventricular diastolic function parameters a re normal. There is mild to moderate tricuspid valve regurgitation. The estimated pulmonary arterial pressure is 40 mmHg. BP: / HR: 95 Rhythm: Sinus MEASUREMENTS (Male / Female) Normal Values Technical Quality:Fair 2D ECHO LV Diastolic Diameter PLAX 5.3 cm 4.2 - 5.9 / 3.9 - 5.3 cm LV Systolic Diameter PLAX 3.8 cm IVS Diastolic Thickness 1.1 cm 0.6 - 1.0 / 0.6 - 0.9 cm LVPW Diastolic Thickness 1.1 cm 0.6 - 1.0 / 0.6 - 0.9 cm LV Relative Wall Thickness 0.4 LVOT Diameter 1.9 cm M-MODE Aortic Root Diameter MM 2.5 cm LA Systolic Diameter MM 4.2 cm LA Ao Ratio MM 1.7 AV Cusp Separation MM 2.1 cm DOPPLER AV Peak Velocity 168.0 cm/s AV Peak Gradient 11.3 mmHg LVOT Peak Velocity 171.0 cm/s LVOT Peak Gradient 11.7 mmHg AV Area Cont Eq pk 2.9 cm MR Peak Velocity 343.0 cm/s MR Peak Gradient 47.1 mmHg Mitral E Point Velocity 135.0 cm/s Mitral A Point Velocity 58.3 cm/s Mitral E to A Ratio 2.3 TR Peak Velocity 274.0 cm/s TR Peak Gradient 30.0 mmHg Right Atrial Pressure 10.0 mmHg Pulmonary Artery Systolic Pressu 40.0 mmHg Right Ventricular Systolic Press 40.0 mmHg PV Peak Velocity 128.0 cm/s PV Peak Gradient 6.6 mmHg FINDINGS LEFT VENTRICLE Normal left ventricular size and wall thickness. The left ventricular systolic function is normal wi th an estimated ejection fraction in the range of 60-65%. Left ventricular diastolic function parameters a re normal. RIGHT VENTRICLE Normal right ventricular size and systolic function. LEFT ATRIUM The left atrial size is normal. RIGHT ATRIUM The right atrial size is normal. ATRIAL SEPTUM Normal atrial septal thickness without atrial level shunting by limited color doppler interrogation. AORTA The aortic root and proximal ascending aorta are normal in size on limited imaging. MITRAL VALVE Structurally normal mitral valve. No mitral valve stenosis or regurgitation. AORTIC VALVE Trileaflet aortic valve. No aortic valve stenosis or regurgitation. TRICUSPID VALVE There is mild to moderate tricuspid valve regurgitation. The estimated pulmonary arterial pressure is 40 mmHg. PULMONARY VALVE No pulmonary valve regurgitation or stenosis. VESSELS The inferior vena cava is normal in size. PERICARDIUM No pericardial effusion. Thompson Robin MD (Electronically Signed) Final Date:20 August 2017 13:08
--- NOTE | 2017-08-20 13:15 | MB ---
cc: ALISSA MAXWELL M.D. DATE OF CONSULTATION: 08/20/2017. REASON FOR CONSULTATION: Respiratory failure and pneumonia. HISTORY OF PRESENT ILLNESS: Mrs. Wise is a 37-year-old female who smokes half a pack a day since she was 16 years old. The patient has a history of systemic lupus erythematosus and has been receiving treatment for same including oral steroid therapy which she just stopped on her own about six months ago. The patient came to the emergency room complaining of increasing shortness of breath, cough and expectoration of a reddish mucoid sputum. She tells me she had a low-grade temperature when she was at home. She is presently without fever or chills. No falguni hemoptysis. No previous history of TB or industrial exposure. PAST MEDICAL HISTORY: Her past medical history is that of: 1. Systemic lupus erythematosus. 2. Fibromyalgia. 3. Mood disorder. 4. Cholecystectomy. 5. Tonsillectomy as a child. 6. Breast augmentation. ALLERGIES: Tramadol. FAMILY HISTORY: Positive for breast cancer. Father had mesothelioma. SOCIAL HISTORY: Smoked half-a-pack a day since age 16 as mentioned above and does not drink any alcohol. Does not use drugs. Disabled due to her lupus. MEDICATIONS: Current medications include : 1. Azithromycin. 2. Iron. 3. Rocephin. 4. Metoprolol. 5. Neurontin. 6. Solu-Medrol IV 40 milligrams every 12 hours. 7. Hydrocodone as needed for pain. REVIEW OF SYSTEMS: A twelve-point review of systems is as per the history of present illness and past history, otherwise negative. PHYSICAL EXAMINATION: VITAL SIGNS: On exam, temperature 98, pulse 62, respirations 28, blood pressure 110/70, oxygen saturation 100%. HEAD, EYES, EARS, NOSE, THROAT: Unremarkable. Eyes without icterus. NECK: Without adenopathy, thyroid enlargement, central trachea. CHEST: Scattered rhonchi bilaterally. CARDIAC: PMI distant. S1-S2 audible. No murmur, no rub. ABDOMEN: Lax. Bowel sounds audible. EXTREMITIES: No cyanosis, clubbing or edema. LABORATORY STUDIES: Arterial blood gas and 08/19/2017: pH 7.42, pCO2 36, pO2 92. Sodium 139, potassium 4.1, BUN 7, creatinine 0.7. White count 17,000, hemoglobin 10, hematocrit 32, platelets at 328,000. Serum iron is at 9. IMAGING STUDIES: As mentioned CT scan of the chest with bilateral ground-glass opacities. IMPRESSION: 1. Bilateral pneumonia. 2. Respiratory failure. 3. Systemic lupus erythematosus. 4. Long smoking history; question COPD. 5. History of fibromyalgia. 6. Depression. PLAN: The patient has bilateral lung infiltrates, ground glass in appearance, which may very well be related to her systemic lupus erythematosus. She has been on steroids and she has stopped taking them. Underlying hypersensitivity pneumonia related to the cleaning compounds she was using at home is a possibility as well, or any other source. However, given her history, lupus would be the most likely etiology. She has been started on antibiotic therapy for possible pneumonia as well as intravenous steroids, which should be helpful for both her lupus and hypersensitivity pneumonia or nonspecific interstitial pneumonia. Hopefully she will start reversing the process and will show improvement; if not, would consider doing a lung biopsy. Will check pulmonary functions to assess the severity of airway obstruction; however, would wait a few days as she is acutely ill at present. I do thank you for asking me to partake in Mrs. Wise's care. Alissa Maxwell MD WWW/DANIEL /12:40 PM /1:00 PM
[2017-08-20] MEDS: AZITHROMYCIN INJ 500 MG in SODIUM CHLOR 0.9% 250 ML INJ 250 ML IV SCH (17:00)
[2017-08-20] MEDS: cefTRIAXone INJ 1,000 MG in SODIUM CHLORIDE 0.9% INJ 100 ML IV SCH (17:00)
[2017-08-20] MEDS: GABAPENTIN 400 MG CAP PO SCH (18:36)
[2017-08-20] MEDS: ENOXAPARIN SODIUM 40 MG/0.4 ML SYRINGE SQ SCH (18:37)
[2017-08-21] VITALS (21 sets, daily range): BP systolic 85–133; BP diastolic 46–75; PULSE 60–86; RESP 16–37; TEMP 98–99.2; O2SAT 89–100
[2017-08-21] MEDS: CHLORHEXIDINE GLUCONATE 2 % 1 PACK (2 CLOTHS)(taper/protocol) TOPICAL SCH (04:00)
[2017-08-21 05:00] LABS: AUTOMATED NEUTROPHIL # 16.5 TH/MM3 (1.8-7.7); BASOPHIL % 0.2 % (0.0-2.0); EOSINOPHIL # 0.1 TH/MM3 (0-0.4); EOSINOPHIL % 0.8 % (0.0-4.0); HEMATOCRIT 30.8 % (35.0-46.0); LYMPH % 3.2 % (9.0-44.0); LYMPHOCYTE # 0.6 TH/MM3 (1.0-4.8); MEAN CELL VOLUME 99.4 FL (80.0-100.0); MEAN CORPUSCULAR HEMOGLOBIN 33.8 PG (27.0-34.0); MONO % 0.9 % (0.0-8.0); NEUT % 94.9 % (16.0-70.0); PLATELET COUNT 331 TH/MM3 (150-450); RED CELL DISTRIBUTION WIDTH 13.3 % (11.6-17.2); WHITE BLOOD COUNT 17.4 TH/MM3 (4.0-11.0)
[2017-08-21 05:04] LABS: HEMO FLAGS AUTO DIFF
[2017-08-21 05:13] LABS: CHLORIDE 107 MEQ/L (98-107); POTASSIUM 4.1 MEQ/L (3.5-5.1); SODIUM (NA) 139 MEQ/L (136-145)
[2017-08-21 05:17] LABS: ANION GAP 6 MEQ/L (5-15); BICARBONATE 26.4 MEQ/L (21.0-32.0); BLOOD UREA NITROGEN 11 MG/DL (7-18)
[2017-08-21 05:20] LABS: ALT (GPT) 35 U/L (10-53); AST (GOT) 26 U/L (15-37); GLOMERULAR FILTRATION RATE 96 ML/MIN (>89)
[2017-08-21 05:21] LABS: TOTAL BILIRUBIN ADULT 0.2 MG/DL (0.2-1.0)
[2017-08-21 05:23] LABS: ALKALINE PHOSPHATASE 121 U/L (45-117)
[2017-08-21] MEDS: ACETAMINOPHEN/HYDROcodone 325 MG/5 MG TAB PO PRN ×3 (05:51→18:53)
--- NOTE | 2017-08-21 05:51 | RADRPT ---
EXAM DATE/TIME: 08/21/2017 05:37 [facility] COMPARISON: CHEST SINGLE AP, August 19, 2017, 15:17. CT THORAX W/O CONTRAST, August 19, 2017, 15:23. INDICATIONS : Shortness of breath. MEDICAL HISTORY : Hypertension. Fibromyalgia. SURGICAL HISTORY : Breast augmentation. ENCOUNTER: Subsequent ACUITY: 4 - 6 days PAIN SCORE: 0/10 LOCATION: Bilateral chest FINDINGS: Symmetric bilateral infiltrates previously improved. No evidence of effusion. Cardiac contour is ghazal sly stable. CONCLUSION: Slight improvement in aeration Tremaine Ordonez MD on August 21, 2017 at 5:49 Board Certified Radiologist. This report was verified electronically.
[2017-08-21 08:01] LABS: PLATELET ESTIMATE SMEAR NORMAL (NORMAL); PLATELET MORPHOLOGY NORMAL (NORMAL)
[2017-08-21 08:02] LABS: SCAN/DIFF AUTO DIFF CONFIRMED
[2017-08-21] MEDS: METOPROLOL TARTRATE 25 MG TAB PO SCH (09:00)
[2017-08-21] MEDS: SODIUM CHLORIDE 0.9% FLUSH 10 ML FLUSH IV FLUSH SCH ×2 (09:12→20:30)
[2017-08-21] MEDS: IRON SUCROSE INJ 100 MG in SODIUM CHLORIDE 0.9% INJ 100 ML IV SCH (09:12)
[2017-08-21] MEDS: GABAPENTIN 400 MG CAP PO SCH ×3 (09:13→18:38)
[2017-08-21] MEDS: DULoxetine HCl DR 60 MG CAP PO SCH (09:13)
[2017-08-21] MEDS: methylPREDNISolone SOD SUCC 40 MG/1 ML VIAL IV PUSH SCH ×2 (09:14→20:31)
--- NOTE | 2017-08-21 12:20 | HHI.PR ---
Subjective Remarks patient seen in follow up for SOB and resp failure CT results, Echo results and plan of care discussed with patient Remains stable on 3 Liters feels tired today BP low Objective Vitals Vital Signs Date Time Temp Pulse Resp B/P (MAP) Pulse Ox O2 Delivery O2 Flow Rate FiO2 08/21/17 10:00 68 31 98 08/21/17 10:00 64 08/21/17 09:18 68 29 106/58 (74) 99 08/21/17 09:00 60 25 98 08/21/17 08:21 98.2 70 18 95/55 (68) 97 08/21/17 08:00 98 Nasal Cannula 3.00 08/21/17 08:00 60 25 95 08/21/17 08:00 66 08/21/17 07:49 99 Nasal Cannula 6.00 08/21/17 07:43 60 26 95/55 (68) 98 08/21/17 07:00 66 28 98 08/21/17 06:00 72 98/48 (65) 100 08/21/17 05:00 64 37 102/54 (70) 100 08/21/17 05:00 64 08/21/17 04:00 74 08/21/17 04:00 98.2 74 25 99/46 (63) 89 08/21/17 03:00 64 08/21/17 03:00 64 26 88/51 (63) 94 08/21/17 02:00 66 26 99/55 (70) 96 08/21/17 01:00 66 08/21/17 01:00 66 26 85/55 (65) 98 08/21/17 00:11 23 08/21/17 00:00 99.2 86 34 101/47 (65) 89 08/20/17 23:00 76 34 93/49 (64) 96 08/20/17 23:00 73 08/20/17 22:00 74 34 93/49 (64) 91 08/20/17 21:00 73 08/20/17 21:00 73 33 96/57 (70) 96 08/20/17 20:00 98.4 72 28 99/58 (72) 93 08/20/17 19:44 95 Nasal Cannula 6.00 08/20/17 19:00 94 35 99/52 (68) 75 08/20/17 19:00 86 25 99/59 (72) 94 08/20/17 19:00 94 Nasal Cannula 6.00 08/20/17 18:00 34 97 08/20/17 17:00 67 35 100/52 (68) 91 08/20/17 16:00 58 37 108/62 (77) 100 08/20/17 15:04 91 08/20/17 14:00 60 36 104/59 (74) 94 08/20/17 13:00 64 08/20/17 13:00 64 36 111/63 (79) 89 I/O 08/20/17 08/20/17 08/20/17 08/21/17 08/21/17 08/21/17 07:00 15:00 23:00 07:00 15:00 23:00 Intake Total 1910 ml 240 ml Output Total 1600 ml Balance 310 ml 240 ml Intake Oral 1560 ml 240 ml IV Total 350 ml Output Urine Total 1600 ml # Voids 4 # Bowel Movements 1 Result Diagram: 08/21/1743908/21/17439 Objective Remarks GENERAL: This is a well-nourished, well-developed patient, short of breath and appears ill, coughing up pink frothy sputum CARDIOVASCULAR: Regular rate and rhythm without murmurs, gallops, or rubs. RESPIRATORY: Tachypnea, Breath sounds equal bilaterally. No wheezes, rales, or rhonchi. GASTROINTESTINAL: Abdomen soft, non-tender, nondistended. Normal active bowel sounds MUSCULOSKELETAL: Extremities without clubbing, cyanosis, there is +1 edema NEURO: Alert & Oriented x4 to person, place, time, situation. Moves all ext x4 A/P Problem List: (1) Acute hypoxemic respiratory failure ICD Code: J96.01 - Acute respiratory failure with hypoxia Plan: o2 support ISS use education provided Treat empirically for pneumonia (CAP v Legionella), sputum (pending), Leg antibodies, BCx2 neg at 2 days continue IV steroids for possible LUPUS flare (2) SLE (systemic lupus erythematosus) ICD Code: M32.9 - Systemic lupus erythematosus, unspecified Plan: Patient without immunosuppressant therapy, follow renal function and supportive care possible lupus flare? cont Solu-Medrol (3) Edema ICD Code: R60.9 - Edema, unspecified Plan: intermittent and patient attributes this to lupus 2 echo wnl, other than mildly elevated pulm artery pressure (4) Leukocytosis ICD Code: D72.829 - Elevated white blood cell count, unspecified Plan: Likely due to infectious process stable continue to follow while on steroids (5) LFT elevation ICD Code: R79.89 - Other specified abnormal findings of blood chemistry Plan: improved, follow (6) Anemia ICD Code: D64.9 - Anemia, unspecified Plan: stable cont iv iron for iron deficiency Discharge Planning transfer to med surg [facility] dvt ppx Sara Hagen MD Aug 21, 2017 12:20
--- NOTE | 2017-08-21 13:21 | HHI.PR ---
Subjective Remarks alert less sob CXRAY , slight clearing Objective Vital Signs Date Time Temp Pulse Resp B/P (MAP) Pulse Ox O2 Delivery O2 Flow Rate FiO2 08/21/17 10:00 68 31 98 08/21/17 10:00 64 08/21/17 09:18 68 29 106/58 (74) 99 08/21/17 09:00 60 25 98 08/21/17 08:21 98.2 70 18 95/55 (68) 97 08/21/17 08:00 98 Nasal Cannula 3.00 08/21/17 08:00 60 25 95 08/21/17 08:00 66 08/21/17 07:49 99 Nasal Cannula 6.00 08/21/17 07:43 60 26 95/55 (68) 98 08/21/17 07:00 66 28 98 08/21/17 06:00 72 98/48 (65) 100 08/21/17 05:00 64 37 102/54 (70) 100 08/21/17 05:00 64 08/21/17 04:00 74 08/21/17 04:00 98.2 74 25 99/46 (63) 89 08/21/17 03:00 64 08/21/17 03:00 64 26 88/51 (63) 94 08/21/17 02:00 66 26 99/55 (70) 96 08/21/17 01:00 66 08/21/17 01:00 66 26 85/55 (65) 98 08/21/17 00:11 23 08/21/17 00:00 99.2 86 34 101/47 (65) 89 08/20/17 23:00 76 34 93/49 (64) 96 08/20/17 23:00 73 08/20/17 22:00 74 34 93/49 (64) 91 08/20/17 21:00 73 08/20/17 21:00 73 33 96/57 (70) 96 08/20/17 20:00 98.4 72 28 99/58 (72) 93 08/20/17 19:44 95 Nasal Cannula 6.00 08/20/17 19:00 94 35 99/52 (68) 75 08/20/17 19:00 86 25 99/59 (72) 94 08/20/17 19:00 94 Nasal Cannula 6.00 08/20/17 18:00 34 97 10/8/17 17:00 67 35 100/52 (68) 91 08/20/17 16:00 58 37 108/62 (77) 100 08/20/17 15:04 91 08/20/17 14:00 60 36 104/59 (74) 94 I/O 08/20/17 08/20/17 08/20/17 08/21/17 08/21/17 08/21/17 07:00 15:00 23:00 07:00 15:00 23:00 Intake Total 1910 ml 240 ml Output Total 1600 ml Balance 310 ml 240 ml Intake Oral 1560 ml 240 ml IV Total 350 ml Output Urine Total 1600 ml # Voids 4 # Bowel Movements 1 Result Diagram: 08/21/1743908/21/17439 Objective Remarks GENERAL: SKIN: Warm and dry. HEAD: Atraumatic. Normocephalic. EYES: Pupils equal and round. No scleral icterus. No injection or drainage. ENT: No nasal bleeding or discharge. Mucous membranes pink and moist. NECK: Trachea midline. No JVD. CARDIOVASCULAR: Regular rate and rhythm. RESPIRATORY: No accessory muscle use. Clear to auscultation. Breath sounds equal bilaterally. GASTROINTESTINAL: Abdomen soft, non-tender, nondistended. Hepatic and splenic margins not palpable. MUSCULOSKELETAL: Extremities without clubbing, cyanosis, or edema. No obvious deformities. NEUROLOGICAL: Awake and alert. No obvious cranial nerve deficits. Motor grossly within normal limits. Five out of 5 muscle strength in the arms and legs. Normal speech. PSYCHIATRIC: Appropriate mood and affect; insight and judgment normal. Medications and IVs Laboratory Tests Test 08/19/17 15:15 08/19/17 17:10 08/19/17 17:53 08/19/17 20:32 White Blood Count 19.3 TH/MM3 (4.0-11.0) Red Blood Count 3.43 MIL/MM3 (4.00-5.30) Hemoglobin 10.9 GM/DL (11.6-15.3) Hematocrit 33.6 % (35.0-46.0) Neutrophils (%) (Auto) 92.1 % (16.0-70.0) Lymphocytes (%) (Auto) 5.5 % (9.0-44.0) Neutrophils # (Auto) 17.6 TH/MM3 (1.8-7.7) Random Glucose 121 MG/DL (74-106) Albumin 2.9 GM/DL (3.4-5.0) Aspartate Amino Transf (AST/SGOT) 48 U/L (15-37) Chloride Level 109 MEQ/L (98-107) Estimat Glomerular Filtration Rate 70 ML/MIN (>89) Arterial Blood Partial Pressure CO2 36 mmHG (38-42) Blood Gas Hemoglobin 11.2 G/DL (12.0-16.0) Iron Level 9 MCG/DL (50-170) Percent Iron Saturation 3.3 % (20-50) Test 08/20/17 06:14 08/20/17 13:02 08/21/17 04:40 White Blood Count 17.0 TH/MM3 (4.0-11.0) 17.4 TH/MM3 (4.0-11.0) Red Blood Count 3.27 MIL/MM3 (4.00-5.30) 3.10 MIL/MM3 (4.00-5.30) Hemoglobin 10.5 GM/DL (11.6-15.3) 10.5 GM/DL (11.6-15.3) Hematocrit 32.1 % (35.0-46.0) 30.8 % (35.0-46.0) Neutrophils (%) (Auto) 95.0 % (16.0-70.0) 94.9 % (16.0-70.0) Lymphocytes (%) (Auto) 3.1 % (9.0-44.0) 3.2 % (9.0-44.0) Neutrophils # (Auto) 16.2 TH/MM3 (1.8-7.7) 16.5 TH/MM3 (1.8-7.7) Lymphocytes # (Auto) 0.5 TH/MM3 (1.0-4.8) 0.6 TH/MM3 (1.0-4.8) Random Glucose 148 MG/DL (74-106) 145 MG/DL (74-106) Albumin 2.6 GM/DL (3.4-5.0) Alkaline Phosphatase 121 U/L (45-117) Assessment and Plan Assessment and Plan Pneumonia , improving SLE PLAN O2 NEEDED BRONCHODILATORS ANTIBIOTIC THERAPY STEROIDS INCREASE ACTIVITY Alissa Maxwell MD Aug 21, 2017 13:21
[2017-08-21] MEDS: RESP: ALBUTEROL 1.25 MG/3 ML NEB (PRN) NEB ×2 (15:16→20:03)
[2017-08-21] MEDS: ENOXAPARIN SODIUM 40 MG/0.4 ML SYRINGE SQ SCH (18:39)
[2017-08-21] MEDS: cefTRIAXone INJ 1,000 MG in SODIUM CHLORIDE 0.9% INJ 100 ML IV SCH (18:40)
[2017-08-21] MEDS: AZITHROMYCIN INJ 500 MG in SODIUM CHLOR 0.9% 250 ML INJ 250 ML IV SCH (20:30)
[2017-08-22] VITALS (8 sets, daily range): BP systolic 118–130; BP diastolic 74–85; PULSE 65–77; RESP 16–20; TEMP 96.8–98.7; O2SAT 94–99
[2017-08-22] MEDS: CHLORHEXIDINE GLUCONATE 2 % 1 PACK (2 CLOTHS)(taper/protocol) TOPICAL SCH (00:22)
[2017-08-22] MEDS: ACETAMINOPHEN/HYDROcodone 325 MG/5 MG TAB PO PRN ×4 (01:01→21:21)
[2017-08-22] MEDS: RESP: ALBUTEROL 1.25 MG/3 ML NEB (PRN) NEB (04:00)
[2017-08-22] MEDS: DULoxetine HCl DR 60 MG CAP PO SCH (08:09)
[2017-08-22] MEDS: GABAPENTIN 400 MG CAP PO SCH ×3 (08:09→19:51)
[2017-08-22] MEDS: methylPREDNISolone SOD SUCC 40 MG/1 ML VIAL IV PUSH SCH ×2 (08:11→21:20)
[2017-08-22] MEDS: SODIUM CHLORIDE 0.9% FLUSH 10 ML FLUSH IV FLUSH SCH ×2 (08:12→21:20)
--- NOTE | 2017-08-22 12:19 | HHI.PR ---
Subjective Remarks Patient seen and follow-up for respiratory failure. Respiratory status is much improved and patient able to take deep breaths; she is no longer hyperventilating. Care plan discussed with patient Objective Vitals Vital Signs Date Time Temp Pulse Resp B/P (MAP) Pulse Ox O2 Delivery O2 Flow Rate FiO2 08/22/17 08:31 94 21 08/22/17 08:00 97.8 68 18 120/81 (94) 97 08/22/17 04:00 99 Nasal Cannula 2.00 08/22/17 00:00 98.7 77 16 130/82 (98) 94 08/22/17 00:00 90 Nasal Cannula 2.00 08/21/17 20:03 96 21 08/21/17 20:00 98.7 67 16 133/75 (94) 95 08/21/17 20:00 95 Room Air 08/21/17 17:32 98.0 80 18 108/62 (77) 95 I/O 08/21/17 08/21/17 08/21/17 08/22/17 08/22/17 08/22/17 06:59 14:59 22:59 06:59 14:59 22:59 Intake Total 345 ml 350 ml 360 ml Balance 345 ml 350 ml 360 ml Intake Oral 240 ml 360 ml IV Total 105 ml 350 ml # Voids 3 Result Diagram: 08/21/1743908/21/17439 Objective Remarks GENERAL: This is a well-nourished, well-developed patient, in no acute distress CARDIOVASCULAR: Regular rate and rhythm without murmurs, gallops, or rubs. RESPIRATORY: Crackles in the bases but moving more air. No wheezes, rales, or rhonchi. GASTROINTESTINAL: Abdomen soft, non-tender, nondistended. Normal active bowel sounds MUSCULOSKELETAL: Extremities without clubbing, cyanosis, there is +1 edema NEURO: Alert & Oriented x4 to person, place, time, situation. Moves all ext x4 A/P Problem List: (1) Acute hypoxemic respiratory failure ICD Code: J96.01 - Acute respiratory failure with hypoxia Plan: o2 support ISS use reevaluated and improved Treat empirically for pneumonia (CAP v Legionella), sputum (pending), Leg antibodies, BCx2 neg at 2 days continue IV steroids for possible LUPUS flare Robitussin may need bronchoscopy at some points, we'll continue with medical treatment for now Pulmonary following (2) SLE (systemic lupus erythematosus) ICD Code: M32.9 - Systemic lupus erythematosus, unspecified Plan: Patient without immunosuppressant therapy, follow renal function and supportive care possible lupus flare? cont Solu-Medrol (3) Edema ICD Code: R60.9 - Edema, unspecified Plan: intermittent and patient attributes this to lupus 2 echo wnl, other than mildly elevated pulm artery pressure (4) Leukocytosis ICD Code: D72.829 - Elevated white blood cell count, unspecified Plan: Likely due to infectious process stable continue to follow while on steroids (5) LFT elevation ICD Code: R79.89 - Other specified abnormal findings of blood chemistry Plan: improved, follow (6) Anemia ICD Code: D64.9 - Anemia, unspecified Plan: stable s/p 2/3 iv iron for iron deficiency Discharge Planning LMWH dvt ppx steroids to po in am, and follow follow sputum for antibiotic choice Sara Hagen MD Aug 22, 2017 12:19
[2017-08-22] MEDS: IRON SUCROSE INJ 100 MG in SODIUM CHLORIDE 0.9% INJ 100 ML IV SCH (14:11)
[2017-08-22] MEDS: ENOXAPARIN SODIUM 40 MG/0.4 ML SYRINGE SQ SCH (20:09)
[2017-08-22] MEDS: cefTRIAXone INJ 1,000 MG in SODIUM CHLORIDE 0.9% INJ 100 ML IV SCH (20:10)
[2017-08-22] MEDS: AZITHROMYCIN INJ 500 MG in SODIUM CHLOR 0.9% 250 ML INJ 250 ML IV SCH (20:11)
[2017-08-22] MEDS: predniSONE 20 MG TAB PO SCH (21:20)
[2017-08-22] MEDS: guaiFENesin/CODEINE SYRUP 200 MG/20 MG/10 ML CUP PO PRN (23:04)
[2017-08-22 23:52] LABS: SCL-70 AB <1.0 NEG AI (<1.0 NEGATIVE)
[2017-08-23] VITALS: BP 121/61; PULSE 64; RESP 20; TEMP 97.6; O2SAT 94
[2017-08-23 03:50] LABS: ACTIN AB IGG <20 U; C3 SERUM 140 mg/dL (90-180); C4 SERUM 37 mg/dL (ADULTS: 16-47); RHEUMATOID FACTOR 23 IU/mL (<14)
[2017-08-23] MEDS: CHLORHEXIDINE GLUCONATE 2 % 1 PACK (2 CLOTHS)(taper/protocol) TOPICAL SCH (04:00)
[2017-08-23] MEDS: guaiFENesin/CODEINE SYRUP 200 MG/20 MG/10 ML CUP PO PRN (06:15)
[2017-08-23] MEDS: ACETAMINOPHEN/HYDROcodone 325 MG/5 MG TAB PO PRN ×2 (06:15→12:19)
[2017-08-23 08:00] VITALS: BP 129/80; PULSE 55; RESP 16; TEMP 96.8; O2SAT 98
[2017-08-23] MEDS: GABAPENTIN 400 MG CAP PO SCH ×2 (08:56→12:23)
[2017-08-23] MEDS: DULoxetine HCl DR 60 MG CAP PO SCH (08:56)
[2017-08-23] MEDS: predniSONE 20 MG TAB PO SCH (08:56)
[2017-08-23] MEDS: SODIUM CHLORIDE 0.9% FLUSH 10 ML FLUSH IV FLUSH SCH (08:57)
[2017-08-23] MEDS: IRON SUCROSE INJ 100 MG in SODIUM CHLORIDE 0.9% INJ 100 ML IV SCH (09:43)
[2017-08-23 12:00] VITALS: BP 127/75; PULSE 55; RESP 16; TEMP 95.8; O2SAT 98
[2017-08-23] MEDS ORDERED: PRED5PAK PO (15:36)
[2017-08-23] MEDS ORDERED: AZIT250T3 PO (15:36)
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
[2017-08-23 16:00] VITALS: BP 140/78; PULSE 64; RESP 16; TEMP 97.4; O2SAT 98
--- NOTE | 2017-08-24 08:42 | HHI.DS ---
Discharge Summary Admission Date Aug 19, 2017 at 16:45 Discharge Date: Aug 23, 2017 Admitting Diagnosis Pneumonia, hypoxia (1) Acute hypoxemic respiratory failure ICD Code: J96.01 - Acute respiratory failure with hypoxia (2) SLE (systemic lupus erythematosus) ICD Code: M32.9 - Systemic lupus erythematosus, unspecified (3) Edema ICD Code: R60.9 - Edema, unspecified (4) Leukocytosis ICD Code: D72.829 - Elevated white blood cell count, unspecified (5) LFT elevation ICD Code: R79.89 - Other specified abnormal findings of blood chemistry (6) Anemia ICD Code: D64.9 - Anemia, unspecified Procedures none Brief History - From Admission This patient is a 37 year old female with a previous history of lupus who came to the emergency room complaining of increased shortness of breath for about 2-1 /2 days. She increased work of breathing and dyspnea on exertion. She finally came to the emergency room and symptoms not improved. She was hypoxemic in the high 70s on arrival requiring nonrebreather. Patient was noted to have low- grade temperature and leukocytosis. She had a CT of the chest done which was quite abnormal and showed quite a bit of ground glass and interstitial abnormalities. Patient denies chest pain but has multiple joint complaints due to 5 mL Sonya and lupus. She smokes half a pack a day. She denies recent travel. She does admit to cleaning her home with several weaning products including bleach. She has never had lung problems before. Recently she was in the emergency room for respiratory symptoms in July and she had a flu test which was negative. Patient also came to the emergency room earlier this week with complaints of a fall and having hit her chest on a drinking bottle. She was treated for probable contusions at that time and discharged home. The patient been admitted to the hospital with respiratory failure and leukocytosis. She's been started on antibiotics. CBC/BMP: 08/21/17 0440 08/21/17 0440 Imaging Last Impressions Chest X-Ray 08/21/17 0000 Signed Impressions: Service Date/Time: Monday, August 21, 2017 05:37 - CONCLUSION: Slight improvement in aeration Tremaine Ordonez MD Chest CT 08/19/17 0000 Signed Impressions: Service Date/Time: Saturday, August 19, 2017 15:23 - CONCLUSION: 1. Bilateral groundglass infiltrates are noted. Infectious or inflammatory pneumonitis/hypersensitivity pneumonitis can have this appearance. Pato Hardy MD PE at Discharge Clear lungs bilaterally, unlabored breathing, no acute distress, ambulating without any difficulty Hospital Course Pt was admitted and started on steroids and abx, pulmonology had followed along as consultation as well. The patient's respiratory symptoms had resolved and she was able to ambulate without any difficulty. Patient was counseled that she should follow-up with the shirt sorter as outpatient and get spirometry testing done as well in the clinic setting to help elucidate whether she has obstructive, restrictive, or mixed lung disease. Patient has met maximum benefit from hospitalization and is clinically stable for discharge. She was discharged on a steroid taper. Pt Condition on Discharge: Stable Discharge Disposition: Discharge Home Discharge Time: > 30 minutes Discharge Instructions DIET: Follow Instructions for: As Tolerated, No Restrictions Activities you can perform: Weight Bearing as Joyn Follow up Referrals: PCP Follow-up - 3-5 Days Pulmonology - 2 Weeks New Medications: Azithromycin (Azithromycin) 250 Mg Tab 250 MG PO DAILY for Infection, #2 TAB 0 Refills Prednisone (48) 5 mg tab Dose Pack (Prednisone (48) 5 mg tab Dose Pack) 5 Mg Dspk 5 MG PO DIRECTED for Inflammation, #1 DSPK 0 Refills Continued Medications: Duloxetine DR (Cymbalta DR) 60 Mg Capdr 60 MG PO DAILY, #30 CAP 0 Refills Gabapentin (Neurontin) 800 Mg Tab 800 MG PO TID, #90 TAB 0 Refills Hydrocodone-Acetaminophen (Lortab) 5-325 Mg Tab 1-2 TAB PO Q6H PRN for PAIN, #15 TAB 0 Refills Metoprolol Tartrate (Metoprolol Tartrate) 25 Mg Tab 25 MG PO DAILY, TAB 0 Refills Benny Rodriguez MD Aug 24, 2017 08:42
[2017-08-24] MEDS ORDERED: PRED5PAK2 PO (08:46)
== END 2017-08-23 17:13 | disposition home or self-care (01) | DRG 189 ==
LOC: PHED 14:39 → PHEDA 16:45 → PH3B 17:19 → PHICU 18:17 → PH3A 08-21 17:41
PROVIDERS: ADMIT Hospitalist; ATTEND Hospitalist
DX: J96.01 Acute respiratory failure with hypoxia (principal); J18.9 Pneumonia, unspecified organism; I95.2 Hypotension due to drugs; M32.9 Systemic lupus erythematosus, unspecified; I10 Essential (primary) hypertension; F17.210 Nicotine dependence, cigarettes, uncomplicated; D50.9 Iron deficiency anemia, unspecified; F32.9 Major depressive disorder, single episode, unspecified; F41.9 Anxiety disorder, unspecified; M79.7 Fibromyalgia; R79.89 Other specified abnormal findings of blood chemistry
CPT/HCPCS: 36600; 71010; 71250; 72072; 80048; 80053; 82607; 82746; 82805; 83516; 83540; 83550; 83605; 84443; 85025; 86038; 86160; 86225; 86235; 86255; 86431; 86703; 87040; 87070; 87102; 87205; 87206; 87641; 93306; 94150; 94640; 94664; 96365; 96375; J0456; J0696; J1650; J1756; J2270; J2405; J2920; J7050; J7512; J7613

== ENCOUNTER 2017-08-30 17:47 | Emergency (ER) | payer MEDICARE, OTHER ==
[~2017-08-30] VITALS: Ht 170.2 cm; Wt 82.2 kg
[~2017-08-30 17:47] MED LIST changes: +AZIT250T3 PO; -METO50TA PO; -PENI500T PO; +PRED5PAK2 PO
[2017-08-30 18:15] VITALS: BP 130/73; PULSE 60; RESP 16; TEMP 98.5; O2SAT 100
--- NOTE | 2017-08-30 20:37 | RADRPT ---
EXAM DATE/TIME: 08/30/2017 20:13 [facility] COMPARISON: CT THORAX W/O CONTRAST, August 19, 2017, 15:23. CHEST SINGLE AP, August 21, 2017, 5:37. INDICATIONS : Right shoulder pain post fall. MEDICAL HISTORY : None. SURGICAL HISTORY : None. ENCOUNTER: Initial ACUITY: 1 day PAIN SCORE: 10/10 LOCATION: Right shoulder. FINDINGS: Multiple view examination of the right shoulder demonstrates no evidence of fracture or dislocation. The glenohumeral and acromioclavicular joints are maintained. There is normal range of motion betwe en internal and external rotation. Bony mineralization is normal. CONCLUSION: Unremarkable examination of the right shoulder. David Olea MD on August 30, 2017 at 20:34 Board Certified Radiologist. This report was verified electronically.
[2017-08-30] MEDS ORDERED: ORPHENADRINE INJ 60 MG/2 ML AMP IM ONE (21:00)
[2017-08-30] MEDS ORDERED: KETOROLAC TROMETHAMINE 60 MG/2 ML (IM) VIAL IM ONE (21:00)
--- NOTE | 2017-08-30 21:04 | PD ---
HPI . Right shoulder pain Chief Complaint: Injury Time Seen by Provider: 20:03 Travel History International Travel<30 days: No Contact w/Intl Traveler<30days: No Traveled to known affect area: No History of Present Illness HPI 37-year-old female presents to the emergency department for right shoulder pain that started 2 days ago when she slipped down some stairs. Patient states she has been icing and using Motrin on the right shoulder since and the pain is persistent. The right arm is neurovascularly intact. Patient has limited abduction range of motion. The patient has no other injuries except for some minor abrasions. Patient states her tetanus was updated in 2008. Patient denies any head or losing consciousness during the fall. Patient denies any fever, chills, malaise, chest pain, nausea, vomiting, abdominal pain, diarrhea or lightheadedness. Patient denies any IV drug use. PFSH Past Medical History Anxiety: Yes Depression: Yes Cardiovascular Problems: Yes (htn on meds) Diminished Hearing: No Fibromyalgia: Yes Headaches: Yes Hypertension: Yes Immunizations Current: No Migraines: Yes Tetanus Vaccination: < 5 Years Influenza Vaccination: No ?: Not LMP: 08/24/17 Past Surgical History Appendectomy: Yes Section: Yes Cholecystectomy: Yes Tonsillectomy: Yes Other Surgery: Yes (BREAST AUGMENTATION) Social History Alcohol Use: Yes (rarely) Tobacco Use: Yes (1/2 ppd) Substance Use: No Allergies-Medications (Allergen,Severity, Reaction): Coded Allergies: tramadol (Unverified Allergy, Intermediate, Tachycardia, 08/30/17) Reported Meds & Prescriptions Reported Meds & Active Scripts Active Reported Metoprolol Tartrate 25 Mg Tab 25 Mg PO DAILY Neurontin (Gabapentin) 800 Mg Tab 800 Mg PO TID Cymbalta DR (Duloxetine HCl) 60 Mg Capdr 60 Mg PO DAILY Review of Systems Except as stated in HPI: all other systems reviewed are Neg Physical Exam Narrative GENERAL: Well-nourished, well-developed 37-year-old female patient in no acute distress. Nontoxic appearing. SKIN: A few small abrasions noted to bilateral hands. Focused skin assessment warm/dry. HEAD: Normocephalic. Atraumatic. EYES: No scleral icterus. No injection or drainage. NECK: Supple, trachea midline. No JVD or lymphadenopathy. CARDIOVASCULAR: Regular rate and rhythm without murmurs, gallops, or rubs. RESPIRATORY: Breath sounds equal bilaterally. No accessory muscle use. GASTROINTESTINAL: Abdomen soft, non-tender, nondistended. MUSCULOSKELETAL: Right shoulder tenderness and limited range of motion secondary to pain. No obvious deformity, ecchymosis, erythema ,cyanosis, or edema. BACK: Nontender without obvious deformity. No CVA tenderness. Data Data Last Documented VS Vital Signs Date Time Temp Pulse Resp B/P (MAP) Pulse Ox O2 Delivery O2 Flow Rate FiO2 08/30/17 18:15 98.5 60 16 130/73 (92) 100 Orders Orders Shoulder, Complete (>2vws) (08/30/17 20:02) Ice/Cold Pack (08/30/17 20:02) Ketorolac Inj (Toradol Inj) (08/30/17 21:00) Orphenadrine Inj (Norflex Inj) (08/30/17 21:00) MDM Medical Decision Making Medical Screen Exam Complete: Yes Emergency Medical Condition: Yes Differential Diagnosis Differential diagnosis as include but not limited to shoulder dislocation, shoulder fracture, shoulder contusion Narrative Course 37-year-old female patient presents emergency department for evaluation of right shoulder pain that started a couple days ago when she slipped on some stairs. X-ray of the right shoulder ordered and pending. Ice applied to right shoulder. X-ray of the right shoulder is unremarkable. Based on patient's symptoms, clinical presentation, radiological results, vital sign review and physical exam it is not necessary to admit the patient to the hospital or keep the patient in the emergency department for further evaluation. Patient will be given an IM injection of Toradol and an I am injection of Norflex and discharged home with instructions to follow up with primary care. Diagnosis Primary Impression: Shoulder contusion Qualified Codes: S40.011A - Contusion of right shoulder, initial encounter Patient Instructions: General Instructions, Shoulder Pain (ED) Additional Instructions: Please return to emergency department if your symptoms return or worsen. Follow up with your primary care provider. Take medications as prescribed. Continue to ice, use Motrin, elevate right arm when resting. Sling when ambulatory. Disposition: 01 DISCHARGE HOME Condition: Stable Mable Paris MORE Aug 30, 2017 21:04
== END 2017-08-30 21:20 | disposition home or self-care (01) ==
LOC: PHED 17:47 → PHEFT 21:20
DX: S40.011A Contusion of right shoulder, initial encounter (principal); W10.9XXA Fall (on) (from) unspecified stairs and steps, initial encounter
CPT/HCPCS: 73030; 96372; 99284; J1885; J2360

== ENCOUNTER 2018-03-30 14:30 | Emergency (ER) | payer MEDICARE, OTHER ==
[~2018-03-30] VITALS: Ht 170.2 cm; Wt 65.0 kg
[~2018-03-30 14:30] MED LIST changes: -AZIT250T3 PO; -HYDR-3533 PO; -PRED5PAK2 PO
[2018-03-30 14:42] VITALS: BP 119/68; PULSE 69; RESP 16; TEMP 97.8; O2SAT 99
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
== END 2018-03-30 15:40 | disposition left against medical advice (07) ==
LOC: NEPD 14:30
DX: T76.21XA Adult sexual abuse, suspected, initial encounter (principal)
CPT/HCPCS: 99281